=== PATIENT | male | born 1990 | race Caucasian/White ===

== ENCOUNTER 2024-09-05 16:55 | Emergency (ER) | payer SELFPAY ==
[2024-09-05 17:01] VITALS: BP 135/91; PULSE 88; RESP 18; TEMP 36.9; O2SAT 99; BMI 32.8
== END 2024-09-05 17:20 | disposition left against medical advice (07) ==
PROVIDERS: Emergency Provider Emergency Medicine
DX: R22.0 Localized swelling, mass and lump, head (principal)

== ENCOUNTER 2024-09-05 17:49 | Emergency (ER) | payer SELFPAY ==
[2024-09-05 17:59] VITALS: BP 135/91; PULSE 88; RESP 18; TEMP 36.9; O2SAT 99; BMI 32.8
--- NOTE | 2024-09-05 20:07 | ED_ITS ---
HPI - Eye Problem General Chief complaint: Eye Problems Stated complaint: L Eye Swelling, Cyst Feels Ready to Burst Time Seen by Provider: 09/05/24 20:06 Source: patient Mode of arrival: Ambulatory History of Present Illness HPI Narrative: 34-year-old male no significant past medical history presents for swelling to the left eye, states that he was seen by his primary care doctor about a month ago for the same, states that it has not really gotten any better, states that he feels like it is getting worse, patient stating that he is not having any visual loss but due to the swelling is causing issues with his vision. 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 He denies any other symptoms at this time Related Data Previous Rx's Medication Instructions Recorded amoxicillin 875 mg-potassium 1 tab PO BID 1 week #14 tabs 09/05/24 clavulanate 125 mg tablet clindamycin HCl 300 mg capsule 300 mg PO TID 1 week #21 caps 09/05/24 Allergies Allergy/AdvReac Type Severity Reaction Status Date / Time No Known Drug Allergies Allergy Verified 09/05/24 18:02 Review of Systems Review of Systems Narrative: General: Denies fever, chills, weight loss HEENT: Positive left eyelid swelling, Denies headache, eye drainage, eye irritation, head trauma, sore throat, voice change Cardiovascular: Denies any chest pain, palpitations, tachycardia Respiratory: Denies any shortness of breath, cough, wheeze, stridor GI/: Denies any abdominal pain, nausea, vomiting, diarrhea, bright red blood per rectum, melanotic stools, urinary frequency, urinary retention, dysuria, hematuria MSK: Denies any joint pain, muscle pains, swelling Skin: Denies any rashes, lesions, discoloration Neuro: Denies any headache, lightheadedness, dizziness, fainting, weakness Psych: Denies SI/HI Patient History tobacco type: vaping Alcohol type: beer Exam Narrative Exam Narrative: General: Cooperative, well-developed, not in acute distress HEENT: Patient with Chalzion noted to the left eyelid, there is no pain with extraocular eye motion, there is no streaking there is some minor tenderness to palpation of the upper eyelid Normocephalic, atraumatic, PERRLA, normal sclera, eyelids normal Neck: Active full range of motion, atraumatic Chest: Normal to inspection, negative crepitus, no overlying erythema ecc hymosis Respiratory: Normal respiratory effort, not in acute respiratory distress, clear to auscultation bilaterally negative cough, wheeze, tachypnea, rhonchi, rales Cardiology: Regular rate rhythm negative gallop, murmur, rubs GI/: No tenderness to palpation, soft, non rigid, normal to inspection, exam deferred MSK: Full active range of motion in all 4 extremities, atraumatic, no tender ness to palpation of any bony prominences Skin: No rashes or lesions noted Neuro: Alert awake oriented x3, moves all 4 extremities spontaneously, cranial nerves intact, able to answer all questions appropriately follows commands appropriately Psych: Cooperative, negative suicidal or homicidal ideations Initial Vital Signs Initial Vital Signs: Vital Signs Temperature 98.5 F 09/05/24 17:59 Pulse Rate 88 09/05/24 17:59 Respiratory Rate 18 09/05/24 17:59 Blood Pressure 135/91 H 09/05/24 17:59 Pulse Oximetry 99 09/05/24 17:59 Oxygen Delivery Method Room Air 09/05/24 17:59 Course Orders Ordered: Proparacaine HCl (Proparacaine 0.5% Ophth Radhika) 1 drops EYE-BOTH PRN PRN PRN Reason: Pain, Mild (1-3) Discontinued Medications Fluorescein Sodium (Fluorescein 1 Mg Strip) 1 mg EYE-LEFT NOW ONE Stop: 09/05/24 19:57 Vital Signs Vital signs: Vital Signs - 8 hr 09/05/24 17:59 Temperature 98.5 F Pulse Rate 88 Respiratory Rate 18 Blood Pressure 135/91 H Pulse Oximetry 99 Oxygen Delivery Method Room Air MDM - Eye Problem Differential Diagnosis Differential diagnosis: Likely other (Hordeolum, Chalzion, preseptal cellulitis) MDM Narrative Medical decision making narrative: 34-year-old male no significant past medical history presents for persistent/worsening swelling to left upper eyelid. He states that this has been ongoing persistent for the past 7 months, states that he saw his primary care doctor for this about a month ago was told to just do warm compresses and to follow up with an eye doctor, he states that he has not been able to follow up with an eye doctor given the fact that the appointment he made was improperly placed and states that when he presented there they had him down to have an eye exam for glasses. 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 At time of evaluation patient with Chalazion in the left upper eyelid, there is no overlying streaking, patient with very minor tenderness to palpation of left upper eyelid but no other gross deformity. Patient will be treated for possible preseptal cellulitis and instructed to follow up with Ophthalmology in outpatient setting, he was given strict return precautions he verbalized understanding of this and agrees to being discharged home with outpatient follow up Discharge Plan Departure Patient Disposition: Home Clinical Impression: Chalazion left upper eyelid Instructions: DI for Chalazion Activity Restrictions/Additional Instructions: Please follow up with Ophthalmology in outpatient setting Please read the discharge instructions sheet carefully and bring all papers to all doctor follow-up visits, as it may contain information that your doctor may want to see. Disease processes change and evolve, if your symptoms worsen or if you develop any new symptoms that are concerning to you please return for evaluation. Your evaluation today does not show any evidence of any life- threatening/serious illnesses requiring admission to the hospital or surgery. Please follow-up with your doctor for re-evaluation in approximately 1 day. Seek immediate medical attention for any worrisome symptoms. *If you do not have a primary care provider please contact the [facility] Resource line at [phone]. They will ask some questions about your medical history and help get you set up with a doctor in the community. Prescriptions: New amoxicillin-pot clavulanate 875-125 mg tablet 1 tab PO BID 7 Days Qty: 14 0RF clindamycin HCl 300 mg capsule 300 mg PO TID 7 Days Qty: 21 0RF Referrals: Rachel Mac MD [Physician] - 3-5 days Miscelljosé miguel,MD Khang [Primary Care Provider] - Stand Alone Forms: Patient Portal/API/Survey
[2024-09-05] MEDS: CLINDAMYCIN 150 MG CAPSULE 300 MG PO (20:23)
[2024-09-05] MEDS: AMOXICILLIN/CLAV 875/125 MG 1 TAB PO (20:23)
== END 2024-09-05 20:29 | disposition home or self-care (01) ==
PROVIDERS: Emergency Provider Student in an Organized Health Care Education/Training Program
DX: H00.14 Chalazion left upper eyelid (principal)
CPT/HCPCS: 99281; 99283

== ENCOUNTER 2025-04-10 20:29 | Emergency (ER) | payer SELFPAY ==
[2025-04-10 20:38] VITALS: BP 138/96; PULSE 90; RESP 16; TEMP 37.1; O2SAT 98; BMI 31.9
--- NOTE | 2025-04-10 20:53 | ED_ITS ---
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 He felt a little bit dizzy and felt nauseated, did not pass out. Had generalized weakness, all symptoms resolved, but his employer wanted him to get checked out. No associated shortness of breath or chest discomfort. No focal numbness or weakness. No trauma or injuries. He has had occasional nosebleeds in the past, none recent, has had episodes of frequent sneezing, not preceding this nosebleed tonight however. No local trauma nose picking. No recent use of aspirin. No disorder of bruising easily, coughing up blood, having blood in urine, having black or red stools. No previous nasal surgeries or polyps or nasal conditions known. No allergies or topical/systemic antihistamine use. No decongestants sprays recently use. Related Data Allergies Allergy/AdvReac Type Severity Reaction Status Date / Time No Known Drug Allergies Allergy Verified 04/10/25 20:38 Patient History Social History Smoking Status: Current every day smoker Smoking Status: Current every day smoker tobacco type: vaping Alcohol type: beer Exam Narrative Exam Narrative: GENERAL: Well-developed patient, in mild distress. HEAD: Atraumatic. Normocephalic. EYES: Pupils equal round and reactive. Extraocular motions intact. No scleral icterus. No injection or drainage. ENT: Nose without bleeding, purulent drainage. Throat without erythema, tonsillar hypertrophy or exudate. Airway patent. NECK: Trachea midline. Non tender CARDIOVASCULAR: Regular rate and rhythm without murmurs, gallops, or rubs. RESPIRATORY: Clear to auscultation. Breath sounds equal bilaterally. No wheezes, rales, or rhonchi. GASTROINTESTINAL: Abdomen soft, non-tender, nondistended. EXTREMITIES: No edema or joint tenderness. BACK: Nontender without deformity or crepitance. No flank tenderness. NEURO: AOx3. Motor functions grossly nonfocal. SKIN: No rash or erythema of visible areas Initial Vital Signs Initial Vital Signs: Vital Signs Temperature 98.8 F 04/10/25 20:38 Pulse Rate 90 04/10/25 20:38 Respiratory Rate 16 04/10/25 20:38 Blood Pressure 138/96 H 04/10/25 20:38 Pulse Oximetry 98 04/10/25 20:38 Oxygen Delivery Method Room Air 04/10/25 20:38 Course Orders Ordered: ED Orders 04/10/25 21:15 CBC Auto Diff [Complete Blood Count AUTO DIFF] Stat CMP [Comprehensive Metabolic Panel] Stat Prothrombin Time INR Stat Vital Signs Vital signs: Vital Signs - 8 hr 04/10/25 20:38 04/10/25 22:10 Temperature 98.8 F Pulse Rate 90 85 Respiratory Rate 16 16 Blood Pressure 138/96 H 124/82 Pulse Oximetry 98 96 Oxygen Delivery Method Room Air Room Air MDM - Epistaxis Lab Data Attestation: I reviewed the patient's lab results. Lab results narrative: White blood cell count 6400, hemoglobin 13.4, platelets adequate. Glucose 109. Normal renal function, electrolytes, serum CO2. Slight ALT elevation, other liver functions normal. INR 1.1 normal. 04/10/25 21:15 04/10/25 21:15 Labs: Lab Results 04/10/25 Range/Units 21:15 WBC 6.4 (4.5-11.0) X10^3/uL RBC 6.22 H (4.5-5.9) X10^6/uL Hgb 13.4 L (13.5-17.5) g/dL Hct 41.9 (41-53) % MCV 67.5 L (80-100) fL MCH 21.5 L (26-34) PG MCHC 31.9 (30-36) % RDW 14.5 (11.6-14.8) % Plt Count 265 (150-400) X10^3/uL Neut % (Auto) 41.3 L (50-75) % Lymph % (Auto) 44.3 H (25-40) % [place] % (Auto) 11.2 (3-14) % Eos % (Auto) 2.3 (2-4) % Baso % (Auto) 0.9 (0-2) % Neut # (Auto) 2700 (6005-0019) /uL Lymph # (Auto) 2800 (5403-7581) /uL [place] # (Auto) 700 (0-900) /uL Eos # (Auto) 100 (0-450) /uL Baso # (Auto) 100 (0-100) /uL Platelet Estimate Adequate on smear RBC Morphology See below Microcytosis 2+ H PT 12.1 (9.4-12.5) SECONDS INR 1.1 (0.9-1.3) Sodium 138 (137-145) mmol/L Potassium 3.8 (3.4-5.1) mmol/L Chloride 101 (98-107) mmol/L Carbon Dioxide 27 (22-32) mmol/L BUN 15 (9-20) mg/dL Creatinine 1.02 (0.66-1.25) mg/dL Estimated GFR > 60 (>60) mL/min BUN/Creatinine Ratio 14.7 (6-22) Glucose 109 H (70-99) mg/dL Calcium 9.4 (8.4-10.2) mg/dL Total Bilirubin 0.5 (0.2-1.3) mg/dL AST 44 (17-59) IU/L ALT 62 H (<50) IU/L Alkaline Phosphatase 56 (38-126) U/L Total Protein 7.6 (6.3-8.2) g/dL Albumin 4.5 (3.5-5.0) g/dL Globulin 3.1 (1.7-4.1) g/dL Albumin/Globulin Ratio 1.5 (1.0-2.8) MDM Narrative Medical decision making narrative: 35-year-old male with left-sided nontraumatic epistaxis about 20 minutes duration, resolved symptoms, subsequent nausea with generalized weakness, though symptoms also seemed to have resolved. Suspect a vasovagal reaction to recent nose bleeding by history. We discussed options, he would like some limited testing. We will screen for bleeding diathesis problems. CBC, CMP, PT INR tests ordered. No active bleeding on examination, no anterior sources of bleeding obvious, could have had spontaneous posterior bleed, not swallowing blood, hemodynamically stable. Afebrile, sirs screen negative. Serum tests pending. Lab data: White blood cell count 6400, hemoglobin 13.4, platelets adequate. Glucose 109. Normal renal function, electrolytes, serum CO2. Slight ALT elevation, other liver functions normal. INR 1.1 normal. Lab testing unremarkable, patient informed, no recurrence of bleeding, unclear by examination source of the bleeding on the reported left side, could have been posterior source. Consider ENT/Otolaryngology follow up consultation for possible flexible nasopharyngoscopy, office contact information provided for on- call provider. Discharged home. Return precautions discussed. Discharge Plan Departure Patient Disposition: Home Clinical Impression: Epistaxis, Anemia Activity Restrictions/Additional Instructions: Reported nontraumatic left-sided nose bleeding earlier today, and subsequent transient weakness. Symptoms resolved here. Platelet count normal. Hemoglobin slight decreased only but technically does meet anemia criteria, could have further workup or recheck in follow up for now, unclear if related to amount of nose bleeding tonight or some other unrelated problem (slight only, normal value hemoglobin 13.5 or higher, in your hemoglobin today was 13.4 just slightly low). On examination unclear cause of your left-sided nose bleeding, could not see any anterior nose bleeding source of the bleeding. It could come from a posterior non visible area. Could consider otolaryngology/your nose throat specialty consultation for flexible nasopharyngoscopy examination. Contact information given for local provider ENT/Otolaryngology office, if you should choose to pursue this type of consultation. Consider recheck of your hemoglobin and follow up with your regular provider. Return to this/nearest emergency department if you have recurrent nosebleeds not responsive to local measures and head tilt nose pinch type maneuvers. Referrals: Cosme Mcneil MD [Physician, Ear, Nose, Throat] Stand Alone Forms: Patient Portal/API
[2025-04-10 21:28] LABS: Add Manual Diff / Slide Review NO; Hematocrit 41.9 % (41-53); Hemoglobin 13.4 g/dL (13.5-17.5); Lymphocytes Absolute Auto 2800 /uL (1100-4500); Mean Corpuscular HGB Conc 31.9 % (30-36); Mean Corpuscular Hemoglobin 21.5 PG (26-34); Mean Corpuscular Volume 67.5 fL (80-100); Platelet Count 265 X10^3/uL (150-400)
[2025-04-10 21:30] LABS: INR 1.1 (0.9-1.3); Prothrombin Time 12.1 SECONDS (9.4-12.5)
[2025-04-10 21:34] LABS: Alanine Aminotransferase 62 IU/L (<50); Albumin 4.5 g/dL (3.5-5.0); Albumin Globulin Ratio 1.5 (1.0-2.8); Alkaline Phosphatase 56 U/L (38-126); Blood Urea Nitrogen 15 mg/dL (9-20); Calcium 9.4 mg/dL (8.4-10.2); Carbon Dioxide 27 mmol/L (22-32); Chloride 101 mmol/L (98-107); Estimated Glomerular Filt Rate > 60 mL/min (>60); Globulin 3.1 g/dL (1.7-4.1); Glucose 109 mg/dL (70-99); HEMOLYSIS < 15 (0-50); Potassium 3.8 mmol/L (3.4-5.1); Sodium 138 mmol/L (137-145); Total Protein 7.6 g/dL (6.3-8.2)
[2025-04-10 21:46] LABS: Microcytosis 2+
[2025-04-10 22:10] VITALS: BP 124/82; PULSE 85; RESP 16; O2SAT 96
== END 2025-04-10 22:11 | disposition home or self-care (01) ==
PROVIDERS: Emergency Provider Emergency Medicine
DX: R04.0 Epistaxis (principal); D64.9 Anemia, unspecified; R11.0 Nausea; R42 Dizziness and giddiness
CPT/HCPCS: 80053; 85025; 85610; 99281; 99283